=== PATIENT | male | born 1980 | race Caucasian/White ===

== ENCOUNTER 2018-05-17 16:20 | Emergency (ER) | payer OTHER ==
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
[2018-05-17] MEDS ORDERED: Diphtheria,Pertussis(Acell),Tetanus Vaccine 0.5 ML SDV IM ONE (17:39)
[2018-05-17] MEDS ORDERED: oxyCODONE 5 MG Tab PO ONE (18:13)
--- NOTE | 2018-05-19 08:54 | CR ---
Shoulder Comp Lt CLINICAL HISTORY: Pain, fall FINDINGS: Patient is a displaced comminuted fracture of the distal clavicle. The AC joint appears int act. Glenohumeral joint is intact. Impression: Displaced distal clavicular fracture
== END 2018-05-17 18:23 | disposition home or self-care (01) ==
LOC: JP.ED 16:20
DX: S42.032B Displaced fracture of lateral end of left clavicle, initial encounter for open fracture (principal); S00.01XA Abrasion of scalp, initial encounter; V19.9XXA Pedal cyclist (driver) (passenger) injured in unspecified traffic accident, initial encounter; Z23 Encounter for immunization
CPT/HCPCS: 73030; 90471; 90715; 99284; A9270